=== PATIENT | male | born 1980 | race Asian ===

== ENCOUNTER 2018-08-08 13:19 | Emergency (ER) | payer MEDICAID ==
[~2018-08-08] VITALS: Ht 172.7 cm; Wt 79.4 kg
[2018-08-08 13:58] VITALS: Ht 172.7 cm; Wt 79.4 kg
[2018-08-08 18:11] LABS: microscopic required? NO
[2018-08-08 18:22] LABS: BASOPHIL % 0.2 % (0-2); PLATELET COUNT 291 x10^3mcL (130-400); RED CELL DISTRIBUTION WIDTH 12.7 % (11.5-14.5)
[2018-08-08 18:27] LABS: UA SPECIFIC GRAVITY >=1.030 (1.005-1.035); urine erythrocyte NEGATIVE (NEGATIVE)
[2018-08-08 18:41] LABS: CALCIUM 9.3 mg/dL (8.5-10.1); CARBON DIOXIDE 29.3 mmol/L (21-32); CHLORIDE SERUM 99 mmol/L (98-107); CREATININE SERUM 0.9 mg/dL (0.7-1.3); GFR1 > 60 mL/min; GLUCOSE SERUM 102 mg/dL (74-106); POTASSIUM SERUM 3.9 mmol/L (3.5-5.1); SODIUM SERUM 138 mmol/L (136-145)
[2018-08-08 18:45] LABS: ALBUMIN 4.1 g/dL (3.4-5.0); ALKALINE PHOSPHATASE 65 U/L (46-116); ALT/SGPT 50 U/L (16-63); AST/SGOT 19 U/L (15-37); BILIRUBIN TOTAL 1.6 mg/dL (0.20-1.00); LIPASE 55 IU/L (73-393)
[2018-08-08 18:46] LABS: TOTAL PROTEIN, SERUM 8.4 g/dL (6.4-8.2)
[2018-08-08 20:32] VITALS: BP 118/66
== END 2018-08-08 20:32 | disposition home or self-care (01) ==
LOC: ED 13:19
PROVIDERS: Emergency Medicine
DX: E86.0 Dehydration (principal); K21.9 Gastro-esophageal reflux disease without esophagitis
CPT/HCPCS: J2270; J2405; J7030

== ENCOUNTER 2019-06-03 19:40 | Emergency (ER) | payer MEDICAID ==
[~2019-06-03] VITALS: Ht 185.4 cm; Wt 78.5 kg
[2019-06-03 20:05] VITALS: Ht 185.4 cm; Wt 78.5 kg
[2019-06-03 22:30] VITALS: BP 120/78
== END 2019-06-03 22:30 | disposition home or self-care (01) ==
LOC: ED 19:40
DX: S93.402A Sprain of unspecified ligament of left ankle, initial encounter (principal); W18.40XA Slipping, tripping and stumbling without falling, unspecified, initial encounter; Y93.89 Activity, other specified; Y92.89 Other specified places as the place of occurrence of the external cause; Y99.8 Other external cause status